=== PATIENT | female | born 1995 | race Two or more races ===

== ENCOUNTER 2019-09-03 16:52 | Emergency (ER) | payer OTHER ==
[2019-09-03] MEDS ORDERED: KETOROLAC TROMETHAMINE INJ/PF 30 MG/1 ML SDV IV ONE ×2 (17:22→21:03)
[2019-09-03] MEDS ORDERED: NORMAL SALINE 1000 ML 1,000 ML IV ONE (17:23)
[2019-09-03 17:41] LABS: ABSOLUTE BASOPHILS # (AUTO) 0.1 10^3/uL (0.0-0.2); ABSOLUTE EOSINOPHILS # (AUTO) 0.2 10^3/uL (0.0-0.6); ABSOLUTE LYMPHOCYTES (AUTO) 3.7 10^3/uL (0.5-4.7); ABSOLUTE MONOCYTES (AUTO) 0.6 10^3/uL (0.1-1.4); ABSOLUTE NEUT (AUTO) 8.7 10^3/uL (1.7-8.2); EOSINOPHILS % (AUTO) 1.4 % (0-6); HEMATOCRIT 43.3 % (36.0-47.0); HEMOGLOBIN 14.5 g/dL (12.0-15.5); LYMPHOCYTES % (AUTO) 27.8 % (13-45); MEAN CORPUSCULAR HGB CONC 33.5 g/dL (32.0-36.0); MEAN CORPUSCULAR VOLUME 81 fl (80-97); MONOCYTES % (AUTO) 4.4 % (3-13); PLATELET COUNT 417 10^3/uL (150-450); RED BLOOD COUNT 5.37 10^6/uL (3.72-5.28); RED CELL DISTRIBUTION WIDTH 16.4 % (11.5-14.0); SEGMENTED NEUTROPHILS % (AUTO) 65.4 % (42-78); TOTAL CELLS COUNTED % (AUTO) 100 %; WHITE BLOOD COUNT 13.3 10^3/uL (4.0-10.5)
[2019-09-03] MEDS ORDERED: RINGERS SOLUTION,LACTATED 1,000 ML IV ONE (17:59)
[2019-09-03 18:02] LABS: ALBUMIN 5.3 g/dL (3.5-5.0); ALKALINE PHOSPHATASE 49 U/L (38-126); ANION GAP 16 (5-19); ASPARTATE AMINO TRANSFERASE 30 U/L (14-36); BILIRUBIN,DIRECT 0.2 mg/dL (0.0-0.4); BILIRUBIN,TOTAL 0.7 mg/dL (0.2-1.3); BLOOD UREA NITROGEN 8 mg/dL (7-20); CALCIUM 10.4 mg/dL (8.4-10.2); CARBON DIOXIDE 21 mmol/L (22-30); CHLORIDE 103 mmol/L (98-107); GLUCOSE 96 mg/dL (75-110); POTASSIUM 4.3 mmol/L (3.6-5.0)
--- NOTE | 2019-09-03 18:15 | ER Document Report ---
Entered by ATUL DE ANDA SCRIBE 09/03/19 8622 Acting as scribe for:PATITO CALDERON MD ED General - General Chief Complaint: Urinary Problem Stated Complaint: BLOOD IN URINE Time Seen by Provider: 09/03/19 17:16 Notes: Patient is a 24 year old female presenting to the emergency department complaining of back pain with associated hematuria. Patient states that she vomited today. Patient states that she took tylenol at about 1430 today which did not help much. Patient states that she takes medication for depression and sleeping problems. She is currently on control. Patient denies having recent fever. - Related Data Allergies/Adverse Reactions: No Known Allergies Allergy (Verified 09/03/19 17:48) Past Medical History - General Information source: Patient - Social History Smoking Status: Current Some Day Smoker Cigarette use (# per day): Yes Chew tobacco use (# tins/day): No Frequency of alcohol use: Occasional Drug Abuse: Marijuana Family History: Reviewed & Not Pertinent Renal/ Medical History: Reports: Hx Ovarian Cysts Musculoskeletal Medical History: Reports Other - Scoliosis Psychiatric Medical History: Reports: Hx Depression Past Surgical History: Reports: Hx Cholecystectomy, Hx Orthopedic Surgery - edwards rods for scoliosis Review of Systems - Review of Systems Constitutional: No symptoms reported. denies: Fever EENT: No symptoms reported Cardiovascular: No symptoms reported Respiratory: No symptoms reported Gastrointestinal: See HPI, Nausea, Vomiting Genitourinary: See HPI, Flank pain, Hematuria Female Genitourinary: No symptoms reported Musculoskeletal: No symptoms reported Skin: No symptoms reported Hematologic/Lymphatic: No symptoms reported Neurological/Psychological: No symptoms reported -: Yes All other systems reviewed and negative Physical Exam - Vital signs Vitals: Temp Pulse Resp BP Pulse Ox 97.8 F 155 H 34 H 132/79 H 100 09/03/19 16:53 09/03/19 16:53 09/03/19 16:53 09/03/19 16:53 09/03/19 16:53 - Notes Notes: Physical Exam: General: Alert, shivering. HEENT: Normocephalic. Atraumatic. PERRL. Extraocular movements intact. Oropharynx clear. Neck: Supple. Non-tender. Respiratory: No respiratory distress. Clear and equal breath sounds bilaterally. Cardiovascular: Tachycardic. Regular rhythm. Abdominal: Lower abdominal tenderness to palpation. Area of most tenderness is the suprapubic region. No distension. Normal Bowel Sounds. Back: Longitudinal surgical scar and some scoliosis. Right CVA percussion tenderness. Extremities: Moves all four extremities. Upper extremities: Normal inspection. Normal ROM. Lower extremities: Normal inspection. No edema. Normal ROM. Neurological: Normal cognition. AAOx4. Normal speech. Psychological: Normal affect. Normal Mood. Skin: Warm. Dry. Normal color. Course - Re-evaluation Re-evalutation: 09/03/19 19:04 This time the patient is feeling better. She no longer has shaking chills. Her heart rate is now down to 75 from a high of 155. 09/03/19 20:27 Patient is quite comfortable at this time and we discussed outpatient treatment. Her pulse is 58 with a blood pressure 105/71. The patient reports that she will be in this area for the next 9 days before returning to [place]. She is cautioned about reasons to return to the emergency room. - Vital Signs Vital signs: Temp Pulse Resp BP Pulse Ox 98.4 F 155 H 22 H 85/54 L 100 09/03/19 17:43 09/03/19 16:53 09/03/19 19:33 09/03/19 19:33 09/03/19 19:33 - Laboratory Result Diagrams: 09/03/19 17:19 09/03/19 17:19 Laboratory results interpreted by me: 09/03/19 09/03/19 09/03/19 17:08 17:19 17:19 WBC 13.3 H RBC 5.37 H RDW 16.4 H Absolute Neuts (auto) 8.7 H Carbon Dioxide 21 L Lactic Acid 3.5 H Calcium 10.4 H Total Protein 9.0 H Albumin 5.3 H Lipase 377.8 H Urine Blood Ur Leukocyte Esterase 09/03/19 18:12 WBC RBC RDW Absolute Neuts (auto) Carbon Dioxide Lactic Acid Calcium Total Protein Albumin Lipase Urine Blood LARGE H Ur Leukocyte Esterase LARGE H Discharge - Discharge Clinical Impression: Tachycardia, Shaking chills, Pyelonephritis, Pelvic pain Urinary tract infection Qualifiers: Urinary tract infection type: acute pyelonephritis Qualified Code(s): N10 - Acute pyelonephritis Condition: Stable Disposition: HOME, SELF-CARE Additional Instructions: Pyelonephritis Your evaluation shows evidence of pyelonephritis. This is an infection in the kidney. Typical symptoms are fever, pain in the flank, pain on urination, and frequent urination. Many cases of pyelonephritis can be treated at home. Hospital care may be necessary for patients who are very ill, or elderly or . Pyelonephritis is treated with antibiotics. Be sure to take all the medication as prescribed. Drink plenty of liquids (about three quarts per day). You may take acetaminophen for fever. You should feel significantly improved within two days. You should have a recheck of your urine in about one week to insure that the infection is gone. Return for a re-examination if your symptoms worsen in any way -- such as high fever, shaking chills, severe weakness or dizziness, severe pain, or inability to pass your urine. Take medications as prescribed. Drink plenty of fluids. Rest. Take ibuprofen 800 mg every 8 hours for the next 1 to 2 days. Return to the emergency room if you have nausea and vomiting, shaking chills, high fever, or worsening pain. RETURN TO THE EMERGENCY ROOM IF ANY NEW OR WORSENING SYMPTOMS. Prescriptions: Ciprofloxacin HCl [Cipro 500 mg Tablet] 500 mg PO BID #14 tablet Hydrocodone/Acetaminophen [Payette 5-325 mg Tablet] 1 tab PO Q4 PRN #10 tablet PRN Reason: Scribe Attestation: 09/03/19 18:16 I personally performed the services described in the documentation, reviewed and edited the documentation which was dictated to the scribe in my presence, and it accurately records my words and actions. I personally performed the services described in the documentation, reviewed and edited the documentation which was dictated to the scribe in my presence, and it accurately records my words and actions.
[2019-09-03] MEDS ORDERED: MORPHINE SULFATE 10 MG/ML INJ IV ONE ×4 (18:17→21:03)
[2019-09-03] MEDS ORDERED: ONDANSETRON HCL INJ/PF 4 MG/2 ML SDV IV ONE (18:17)
[2019-09-03 18:31] LABS: APPEARANCE,URINE CLOUDY; BILIRUBIN,URINE NEGATIVE (NEGATIVE); COLOR,URINE YELLOW; GLUCOSE, URINE NEGATIVE (NEGATIVE); KETONES,URINE NEGATIVE (NEGATIVE); LEUKOCYTE ESTERASE,URINE LARGE (NEGATIVE); NITRITE,URINE NEGATIVE (NEGATIVE); PROTEIN,URINE NEGATIVE (NEGATIVE); URINE SPECIFIC GRAVITY 1.004; UROBILINOGEN,URINE NEGATIVE mg/dL (<2.0)
[2019-09-03] MEDS ORDERED: CEFTRIAXONE 1 GM/D5W RTU 1 GM/50 ML RTUPB IV ONE (18:35)
[2019-09-03] MEDS ORDERED: ACETAMINOPHEN 325 MG TABLET PO ONE (18:36)
[2019-09-03] MEDS ORDERED: CIPROFLOXACIN HCL 500 MG TABLET PO ONE (20:24)
[2019-09-03] MEDS ORDERED: HYDROCODONE/ACETAMINOPHEN 5-325 MG (6 TAB/ER DISP) PO PRN (21:03)
[2019-09-03 21:06] VITALS: BP 103/69
[2019-09-03 21:50] LABS: CHLAM PCR NOT DETECTED (NOT DETECT)
== END 2019-09-03 21:29 | disposition home or self-care (01) ==
LOC: ER 16:52
DX: N10 Acute pyelonephritis (principal); R31.9 Hematuria, unspecified; R68.83 Chills (without fever); M41.9 Scoliosis, unspecified; M54.9 Dorsalgia, unspecified; R11.2 Nausea with vomiting, unspecified; R10.2 Pelvic and perineal pain; R10.819 Abdominal tenderness, unspecified site; R00.0 Tachycardia, unspecified; F17.210 Nicotine dependence, cigarettes, uncomplicated; F12.10 Cannabis abuse, uncomplicated; F32.9 Major depressive disorder, single episode, unspecified; Z79.899 Other long term (current) drug therapy; Z79.3 Long term (current) use of hormonal contraceptives; Z87.42 Personal history of other diseases of the female genital tract
CPT/HCPCS: 36415; 87040; 87086; 84702; 83690; 85025; 87088; 80053; 81001; 87186; 87491; 87591; 83605; J1885; J2270; J2405; J7030; J7120; J0696; 96361; 96365; 96375; 96376; 99283

== ENCOUNTER 2019-09-05 21:33 | Emergency (ER) | payer OTHER ==
[2019-09-05] MEDS ORDERED: MORPHINE SULFATE 10 MG/ML INJ IV ONE (21:46)
[2019-09-05] MEDS ORDERED: ONDANSETRON HCL INJ/PF 4 MG/2 ML SDV IV ONE (21:46)
[2019-09-05] MEDS ORDERED: NORMAL SALINE 1000 ML 1,000 ML IV ONE ×3 (21:47→22:06)
--- NOTE | 2019-09-05 21:48 | ER Document Report ---
ED Medical Screen (RME) - General Chief Complaint: Flank Pain Stated Complaint: VOMITING/BACK PAIN Time Seen by Provider: 09/05/19 21:46 - HPI Notes: 09/05/19 21:48 24 year old female to the ED with C/O persistent and worsening right flank pain and nausea and vomiting. States she was seen here two days ago and diagnosed with a kidney infection. She was placed on cipro. She states she has had a very hard time keeping her medicines down. She has not had any pain control. Not sure that she has had any fevers. Denies any chest pain, SOB, diarrhea, headache, syncope. I performed a medical screening exam on this patient and have determined she will need further work up by mainside provider. I have ordered labs, meds, and fluids. As we were getting patient into a wheelchair, she had a near syncopal episode. We were able to get her into a wheelchair, but she continues to feel lightheaded. She was taken back to a room immediately. - Related Data Allergies/Adverse Reactions: No Known Allergies Allergy (Verified 09/03/19 17:48) Past Medical History Renal/ Medical History: Reports: Hx Ovarian Cysts Psychiatric Medical History: Reports: Hx Depression Past Surgical History: Reports: Hx Cholecystectomy, Hx Orthopedic Surgery - edwards rods for scoliosis
--- NOTE | 2019-09-05 22:12 | ER Document Report ---
ED GI/ - General Chief Complaint: Flank Pain Stated Complaint: VOMITING/BACK PAIN Time Seen by Provider: 09/05/19 21:46 Information source: Patient Notes: Ms. Duggan is a 24 yo F w/ PMH scoliosis status post spinal fusion brought into trauma to as an acute critically ill patient. Patient states that she was prescribed ciprofloxacin 2 days ago for UTI. She is been taking it without any issues up until today. She states that she had approximately 7-8 episodes of nausea and vomiting today. She is unsure if she threw up 1 of her tablets but did take an extra at an attempt to make up for it. She endorses subjective fever and chills. When the patient was being moved from triage into a wheelchair went to stand up and she started to faint. Patient was rushed back to trauma to for concern for possible sepsis and hypotension. Patient endorses vague abdominal pain with ongoing nausea and vomiting. No episodes of diarrhea. Vomitus was nonbilious nonbloody. She denies any other medical problems. She endorses lightheadedness when she stood up. She also endorses ongoing dysuria and increased urinary frequency that is not improved since starting the Cipro. No chest pain, cough or shortness of breath. TRAVEL OUTSIDE OF THE [place] IN LAST 30 DAYS: No - Related Data Allergies/Adverse Reactions: No Known Allergies Allergy (Verified 09/03/19 17:48) Home Medications: trazadone, cipro 500 mg Past Medical History - Social History Smoking Status: Current Some Day Smoker Family History: Reviewed & Not Pertinent Patient has suicidal ideation: No Patient has homicidal ideation: No Renal/ Medical History: Reports: Hx Ovarian Cysts Psychiatric Medical History: Reports: Hx Depression Past Surgical History: Reports: Hx Cholecystectomy, Hx Orthopedic Surgery - edwards rods for scoliosis Review of Systems - Review of Systems Constitutional: See HPI EENT: No symptoms reported Cardiovascular: No symptoms reported Respiratory: No symptoms reported Gastrointestinal: No symptoms reported Genitourinary: See HPI Female Genitourinary: No symptoms reported Musculoskeletal: No symptoms reported Skin: No symptoms reported Hematologic/Lymphatic: No symptoms reported Neurological/Psychological: No symptoms reported Physical Exam - Vital signs Vitals: Temp Pulse Resp BP Pulse Ox 97.3 F 82 16 101/69 100 09/05/19 21:42 09/05/19 21:42 09/05/19 21:42 09/05/19 21:42 09/05/19 21:42 Interpretation: Normal - General General appearance: Alert, Anxious In distress: Mild Notes: Appears pale and anxious. - HEENT Head: Normocephalic, Atraumatic Eyes: Normal Pupils: PERRL - Respiratory Respiratory status: No respiratory distress Chest status: Nontender Breath sounds: Normal Chest palpation: Normal - Cardiovascular Rhythm: Regular Heart sounds: Normal auscultation Murmur: No - Abdominal Inspection: Normal Distension: No distension Bowel sounds: Normal Tenderness: Tender - TTP in the right lower quadrant as well as suprapubic.. No: Guarding, Rebound Organomegaly: No organomegaly - Back Back: Normal, Nontender, CVA tenderness - On the right, Scars - Right mid thoracic - Extremities General upper extremity: Normal inspection, Nontender, Normal color, Normal ROM, Normal temperature General lower extremity: Normal inspection, Nontender, Normal color, Normal ROM, Normal temperature, Normal weight bearing. No: Martín's sign - Neurological Neuro grossly intact: Yes Cognition: Normal Orientation: AAOx4 Saima Coma Scale Eye Opening: Spontaneous Stevens Coma Scale Verbal: Oriented Saima Coma Scale Motor: Obeys Commands Stevens Coma Scale Total: 15 Speech: Normal Motor strength normal: LUE, RUE, LLE, RLE Sensory: Normal - Psychological Associated symptoms: Normal affect, Anxious - Skin Skin Temperature: Warm Skin Moisture: Dry Skin Color: Normal Course - Re-evaluation Re-evalutation: Patient is mildly ill-appearing however nontoxic. Primarily she appears anxious and pallor as well she is actively crying. Initial vitals obtained in triage are within normal limits although the systolic blood pressure is slightly low at 101. Afebrile here. Differential diagnosis includes pyelonephritis, sepsis, dehydration, electrolyte abnormality, UTI. 09/05/19 22:10 Patient ordered for 4 mg of Zofran as well as 2 L of fluid. Full set of labs included lactic acid and blood cultures are pending. Patient does have CVA tenderness on examination to suggest pyelonephritis. Personally I feel that ciprofloxacin is an ineffective medication for UTIs and there is high resistance rates therefore likely that the patient has ongoing UTI. 09/05/19 23:32 Labs notable for leukocytosis without significant left shift. Essentially unchanged from 2 days ago. H&H is slightly decreased from 2 days ago however the patient denies being recently on her menses or having any other blood loss. Of note, per nursing, the ciprofloxacin does not appear to have been filled. I discussed this at length with the patient who is adamant that she filled the ciprofloxacin at a [facility]. UA consistent with UTI. Patient already received ceftriaxone IV in addition to 2 L of fluids here in the ED. Blood pressure is also improved from 105 systolic to 117 systolic. Patient will be ordered for Bactrim for double coverage for pyelonephritis given his CVA tenderness. Patient does not clinically appear to be septic and likely her dizziness earlier was related to her ongoing anxiety. She has been off her Xanax for about 2 weeks now. Patient states that she did not feel lightheaded now although she did endorse that earlier. She states that she has not infrequent episodes of "these spells" where she feels weak all over. 09/06/19 00:37 Patient ambulated in the ED without any issues. No lightheadedness. Patient requesting to be discharged. Shared decision making employed. No obvious signs of sepsis. Upon further evaluation, her lactic acidosis although mildly elevated 2.1 today, was 3.52 days ago. Patient will be discharged with double antibiotics for pyelonephritis including Keflex and Bactrim. Recommend to stop taking the ciprofloxacin altogether. Patient given return precautions and instructed to stay well-hydrated. - Vital Signs Vital signs: Temp Pulse Resp BP Pulse Ox 99.2 F 82 12 104/69 100 09/05/19 21:53 09/05/19 21:42 09/06/19 00:15 09/06/19 00:15 09/05/19 23:30 - Laboratory Result Diagrams: 09/05/19 21:59 09/05/19 21:59 Laboratory results interpreted by me: 09/05/19 09/05/19 21:59 22:45 WBC 12.4 H Hgb 11.4 L D Hct 34.7 L MCH 26.8 L RDW 16.5 H Absolute Lymphs (auto) 5.0 H Urine Blood SMALL H - EKG Interpretation by Ok EKG shows normal: Sinus rhythm, Sunset, Intervals Rate: Normal Rhythm: NSR Sunset/QRS: Right axis deviation Discharge - Discharge Clinical Impression: Pyelonephritis, Pre-syncope, Leukocytosis Condition: Good Disposition: HOME, SELF-CARE Instructions: Pyelonephritis ([facility]), Antibiotic Therapy ([facility]), Trimethoprim- Sulfa ([facility]) Additional Instructions: It is important that you take the full course of antibiotics as prescribed. You have been prescribed Keflex as well as Bactrim. You need to be taking both medications for the full course as prescribed, even if you start feeling better. Please stop taking the ciprofloxacin altogether. You have also been prescribed Zofran sublingual dissolving tablets to use as needed for nausea. Make sure you stay well-hydrated and drink plenty of fluids. Prescriptions: Sulfamethoxazole/Trimethoprim [Bactrim Ds Tablet] 2 tab PO BID #10 tablet Cephalexin Monohydrate [Keflex 500 mg Capsule] 500 mg PO TID 10 Days capsule Ondansetron [Zofran Odt 4 mg Tablet] 1 - 2 tab PO TID PRN #20 tab.rapdis PRN Reason: For Nausea/Vomiting
[2019-09-05] MEDS ORDERED: CEFTRIAXONE INJ 1000 MG VIAL IV ONE (22:13)
[2019-09-05 22:23] LABS: ABSOLUTE BASOPHILS # (AUTO) 0.1 10^3/uL (0.0-0.2); ABSOLUTE EOSINOPHILS # (AUTO) 0.6 10^3/uL (0.0-0.6); ABSOLUTE MONOCYTES (AUTO) 0.7 10^3/uL (0.1-1.4); BASOPHILS % (AUTO) 1.2 % (0-2); EOSINOPHILS % (AUTO) 5.1 % (0-6); HEMATOCRIT 34.7 % (36.0-47.0); LYMPHOCYTES % (AUTO) 39.8 % (13-45); MEAN CORPUSCULAR HEMOGLOBIN 26.8 pg (27.0-33.4); MEAN CORPUSCULAR HGB CONC 32.9 g/dL (32.0-36.0); MEAN CORPUSCULAR VOLUME 81 fl (80-97); MONOCYTES % (AUTO) 5.6 % (3-13); PLATELET COUNT 344 10^3/uL (150-450); RED BLOOD COUNT 4.27 10^6/uL (3.72-5.28); RED CELL DISTRIBUTION WIDTH 16.5 % (11.5-14.0); SEGMENTED NEUTROPHILS % (AUTO) 48.3 % (42-78); TOTAL CELLS COUNTED % (AUTO) 100 %; WHITE BLOOD COUNT 12.4 10^3/uL (4.0-10.5)
[2019-09-05 22:27] LABS: ALBUMIN 4.1 g/dL (3.5-5.0); ALKALINE PHOSPHATASE 48 U/L (38-126); ANION GAP 11 (5-19); ASPARTATE AMINO TRANSFERASE 19 U/L (14-36); BILIRUBIN,DIRECT 0.1 mg/dL (0.0-0.4); BILIRUBIN,TOTAL 0.4 mg/dL (0.2-1.3); BLOOD UREA NITROGEN 7 mg/dL (7-20); CALCIUM 9.3 mg/dL (8.4-10.2); CARBON DIOXIDE 23 mmol/L (22-30); CHLORIDE 105 mmol/L (98-107); GLUCOSE 77 mg/dL (75-110); POTASSIUM 3.6 mmol/L (3.6-5.0); TOTAL PROTEIN 7.1 g/dL (6.3-8.2)
[2019-09-05 22:28] LABS: HEMOGLOBIN 11.4 g/dL (12.0-15.5)
[2019-09-05 23:21] LABS: APPEARANCE,URINE CLEAR; BILIRUBIN,URINE NEGATIVE (NEGATIVE); COLOR,URINE STRAW; GLUCOSE, URINE NEGATIVE (NEGATIVE); KETONES,URINE NEGATIVE (NEGATIVE); LEUKOCYTE ESTERASE,URINE NEGATIVE (NEGATIVE); NITRITE,URINE NEGATIVE (NEGATIVE); PROTEIN,URINE NEGATIVE (NEGATIVE); UROBILINOGEN,URINE NEGATIVE mg/dL (<2.0)
[2019-09-05] MEDS ORDERED: SULFAMETHOXAZOLE/TRIMETHOPRIM 800-160 MG TABLET PO ONE (23:40)
[2019-09-06 00:31] VITALS: BP 104/69
--- NOTE | 2019-09-06 23:21 | EKG REPORT ---
SEVERITY:- BORDERLINE ECG - SINUS RHYTHM ATRIAL PREMATURE COMPLEX BORDERLINE RIGHT AXIS DEVIATION BORDERLINE T ABNORMALITIES, ANT-LAT LEADS : Confirmed by: Brad Galan 06-Sep-2019 23:20:03
== END 2019-09-06 01:02 | disposition home or self-care (01) ==
LOC: ER 21:33
DX: N12 Tubulo-interstitial nephritis, not specified as acute or chronic (principal); R55 Syncope and collapse; D72.829 Elevated white blood cell count, unspecified; R10.9 Unspecified abdominal pain; F17.200 Nicotine dependence, unspecified, uncomplicated; Z98.1 Arthrodesis status; Z90.49 Acquired absence of other specified parts of digestive tract
CPT/HCPCS: 93005; 36415; 87040; 82962; 83690; 84703; 85025; 80053; 81001; 83605; 93010; J0696; J2405; J7030; 96361; 96374; 96375; 99284